=== PATIENT | male | born 1980 | race Two or more races ===

== ENCOUNTER → 2025-03-30 | Outpatient (CLI) | payer BC, SELFPAY ==
--- NOTE | 2025-03-30 07:15 | XR_ITS ---
Examination: Abdomen sonogram, complete Date and time of exam: March 30, 2025 0729 hours INDICATIONS: Elevated liver enzymes on the current examination 2 months ago. Technique: Multiple real-time grayscale transabdominal sonographic images of the abdomen have been obtained. Findings: Normal gallbladder. Normal common bile duct 0.3 cm Pancreatic head 2.8 cm Aorta is not enlarged Liver 16.3 cm fatty infiltration Normal hepatopedal portal venous flow Patent IVC Right kidney 12.4 cm cortex 1.7 cm Left kidney 12.3 cm cortex 2.0 cm Spleen 9.3 cm IMPRESSION: Normal gallbladder Fatty liver
== END | disposition home or self-care (01) ==
PROVIDERS: PCP Nurse Practitioner; Referring Provider Nurse Practitioner; Visit Provider Nurse Practitioner
DX: K76.0 Fatty (change of) liver, not elsewhere classified (principal)
CPT/HCPCS: 76700

== ENCOUNTER 2025-09-12 09:18 | Outpatient (AMB) | payer BC, SELFPAY ==
[2025-09-12 09:39] VITALS: BP 152/99; PULSE 79; RESP 18; TEMP 36.7; O2SAT 97; BMI 32.0
--- NOTE | 2025-09-12 09:39 | GSCOFFNT_ITS ---
Vital Signs - [facility] 09/12/25 09:39 Height 1.68 m Height Method Stated Weight 90.01 kg Weight Measurement Method Standing Scale BMI 32.0 BP 152/99 H Blood Pressure Source Automatic Cuff Blood Pressure Location Left Upper Arm Position Sitting Respiration 18 Pulse 79 Pulse Source Monitor Temp 98.1 F Temp Source Temporal Artery Scan Pulse Oximetry (%) 97 Oxygen Delivery Method Room Air Med/Allergies Allergies & Medications Allergies No Known Allergies Allergy (Verified 11/07/18 14:04) MA Intake Visit Data Collection New Patient or Established: New Patient (never been to [facility]) Seen by Clinical Staff ONLY (RN/MA): No Reason for Visit:: REFERRAL COLONOSCOPY Pain Present Currently: No Pain scale:: 0 PCP or OBGYN visit in last 3 months: Yes Hx Now: No Do You Feel Safe at Home: Yes Authorities Contacted: N/A Smoking Status Smoking Status: Current some day smoker Cessation Counseling Provided: ABBY was advised that quitting smoking is the single most important factor to protect the health of themselves and their family. Discussed the benefits of quitting smoking with patient. Encouraged patient to quit smoking and provided Cessation assistance materials and resources. Tobacco Use: Cigarette (MARIJUANA) Years smoked: 2 Are you interested in quitting?: No Would you like additional Smoking Cessation Counseling?: No Immunization / Flu Flu Vaccine in the Last 12 Months: No Flu Vaccine Exclusion Criteria: Refused by Patient Past Medical History Past Medical History CARDIAC: Positive Hypertension; Negative Congestive Heart Failure RESPIRATORY: Negative Chronic Obstructive Pulmonary Disease (COPD) GENITOURINARY: Negative Renal Disease ENDOCRINE: Negative Diabetes Mellitus Type 1 or Diabetes Mellitus Type 2 Family History OTHER FAMILY HX: Brother at age 20 from unspecified liver malignancy No family history of colorectal cancers Surgical History OTHER SURGICAL HX: Other surgical history: None Social History SMOKING STATUS: Smoking status: Current some day smoker SUBSTANCE USE: Substance use type: marijuana HPI HPI Narrative Abby Elliott is a 45 yo male with a PMH of hypertension, pre-diabetes, and possible sleep apnea here for his first routine colonoscopy referred to the clinic by his PCP. He currently does not have any complaints aside from minor bright red blood per rectum about once a month with excess straining associated with occasional constipation. His stools are usually well formed, and he has about 2-3 BMs a day. He drinks about 4-5 bottles of water a day and reports adequate fiber intake. He denies pencil-thin stools, NVD, fatigue, fever, chills, anorexia, or dyschezia. ROS Review of Systems Systems Reviewed: All systems reviewed, normal except as documented Respiratory Comments: No acute respiratory distress Objective/Exam General General Appearance: alert, cooperative and well groomed Resp Respiratory exam: Absent respiratory distress Assessment & Plan Diagnosis / Problem List (1) Encounter for screening colonoscopy for [id number] patient: Status: Acute Assessment & Plan: 45M with HTN, preDM undergoing workup for DANISHA referred for screening colonoscopy. Given his symptoms of DANISHA I will request anesthesia for his colonoscopy and I explained prep as well as benefits/risks of the procedure including bleeding, perforation requiring emergency surgery as well as the potential for needing to abort prematurely for safety. 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 Level 3 (3011-6150) Patient Portal Questionaires Social History Tobacco History Smoking Status: Current some day smoker Domestic Abuse History Do You Feel Safe at Home: Yes Review of Systems Report any current symptoms Only answer those that you have currently: Past Medical History Past Medical History Have you ever been diagnosed with any of the following: Cardiology Problems Congestive Heart Failure: No Hypertension: Yes Respiratory Problems Chronic Obstructive Pulmonary Disease (COPD): No Genital/Urinary Problems Renal Disease: No Endocrine Problems Diabetes Mellitus Type 1: No Diabetes Mellitus Type 2: No
== END 2025-09-12 10:11 | disposition home or self-care (01) ==
LOC: HODSRG 09:18
PROVIDERS: PCP Nurse Practitioner; Referring Provider Nurse Practitioner; Supervising Provider Surgery; Visit Provider Surgery
DX: Z12.11 Encounter for screening for malignant neoplasm of colon (principal); I10 Essential (primary) hypertension
CPT/HCPCS: 99203; G0463